=== PATIENT | female | born 1965 | race Caucasian/White ===

== ENCOUNTER 2021-08-17 17:41 | Emergency (ER) | payer BC, SELFPAY ==
[2021-08-17 17:47] VITALS: BP 126/58; PULSE 74; RESP 18; TEMP 36.3; O2SAT 95; BMI 25.7
--- NOTE | 2021-08-17 19:03 | ED_ITS ---
HPI - Animal Bite General Chief Complaint: Animal Bite Stated Complaint: exposed to a bat Source: patient Mode of arrival: ambulatory Limitations: no limitations History of Present Illness HPI narrative: 56-year-old female presents with bat exposure. MD complaint: animal bite Onset (ago): day(s) (2) Animal: bat Description of animal: wild animal Mechanism: animal present during sleep Context: possible exposure while asleep Associated symptoms: none Related Data Patient tetanus UTD: No Allergies Allergy/AdvReac Type Severity Reaction Status Date / Time No Known Allergies Allergy Verified 08/17/21 17:45 Review of Systems Review of Systems: Constitutional: No Fever, No Chills ENT/Mouth: No Ear Pain, No Hoarseness, No sore throat Eyes: No Eye Pain, No Swelling, No Redness, No Foreign Body Cardiovascular: No Chest Pain, No SOB Respiratory: No Cough, No Dyspnea Gastrointestinal: No Nausea, No Vomiting, No Diarrhea, No abdominal Pain Genitourinary: No Dysuria, No Hematuria Musculoskeletal: No joint pain, No Myalgias, No Joint Swelling Skin: No Skin lacerations, No rash Neuro: No Weakness, No Numbness, No Paresthesias, No Loss of Consciousness, No Dizziness, No Headache Psych: No Anxiety/Panic, No Depression Heme/Lymph: no easy bruising, no Lymphadenopathy Endocrine: No Polyuria, No Polydipsia Yes all other systems are reviewed and are negative [facility] Past Medical History Attestation statement: The following information was validated with the patient. Source: old records reviewed Social History Social History Advance Directives: No Advance Directives Information Provided: Yes Physical Exam ED Vital Signs: Vital Signs - 24 hr 08/17/21 17:47 Temperature 97.3 F Pulse Rate 74 Respiratory Rate 18 Blood Pressure 126/58 L Pulse Oximetry 95 BMI result Body Mass Index 25.7 Appearance: Alert. Oriented X3. No acute distress. Eyes: Pupils equal, round and reactive to light. ENT: Pharynx normal. Neck: Normal inspection. Neck supple. CVS: Normal heart rate and rhythm. Pulses normal. Respiratory: No respiratory distress. Breath sounds normal. Abdomen: Soft and nontender. Skin: Skin warm and dry. Normal skin color. Normal skin turgor. Extremities: No lower extremity edema. Gait well balanced well coordinated. Neuro: No motor deficit. No sensory deficit. Cranial nerves 2-12 intact. Course Course Course Narrative: 56-year-old female presents with bat exposure. A bat was noted to be flying around in her bedroom approximately 2 nights ago. Unknown if she had direct contact however primary care physician sent her to the emergency department for prophylaxis. No apparent injury. At this time we will treat with rabies immunoglobulin, rabies vaccine, and Tdap vaccine. Patient does understand that she must return for subsequent vaccinations. Patient verbalized understanding of and agrees to plan of care to discharge home. Verbalized understanding of signs and symptoms indicating need for emergent intervention MDM - Animal Bite Differential Diagnosis Differential diagnosis: Likely rabies contact Medical Records Attestation: I reviewed the patient's medical records. Discharge Plan Discharge Clinical Impression: Rabies contact Patient Disposition: Home, Self-Care Instructions: Rabies Vaccine (By injection), Rabies Immune Globulin (By injection), Rabies (ED), Postexposure Prophylaxis (ED) Additional Instructions: You were evaluated for a bat exposure. We are treating you for rabies prophylaxis. You must return for subsequent vaccinations. We updated your Tdap vaccine today. Thank you for choosing this emergency department for evaluation. Please follow-up with primary care physician as needed. Return to the emergency department for any new, concerning, or worsening symptoms.
[2021-08-17] MEDS: Diphth,Pertus(ACell),Tet Adult 0.5 ML SYRINGE IM (20:03)
[2021-08-17] MEDS: Rabies Vaccine (PCEC)/PF 1 ML VIAL IM (20:04)
[2021-08-17] MEDS: Rabies Immune Globulin/PF 900 UNIT/3 ML VIAL 1404 UNIT IM (20:05)
== END 2021-08-17 20:18 | disposition home or self-care (01) ==
PROVIDERS: Emergency Provider Internal Medicine
DX: T63.891A Toxic effect of contact with other venomous animals, accidental (unintentional), initial encounter (principal); Z20.3 Contact with and (suspected) exposure to rabies; Y92.003 Bedroom of unspecified non-institutional (private) residence as the place of occurrence of the external cause
CPT/HCPCS: 90375; 90471; 90472; 90675; 90715; 96372; 99284

== ENCOUNTER 2021-08-20 07:56 | Outpatient (REF) | payer BC, SELFPAY | END 2021-08-20 07:57 | disposition home or self-care (01) | LOC: HO.MDS 07:56 | PROVIDERS: Visit Provider Nurse Practitioner Family | DX: Z29.14 Encounter for prophylactic rabies immune globulin (principal); Z20.3 Contact with and (suspected) exposure to rabies | CPT/HCPCS: 90471; 90675 ==